=== PATIENT | female | born 1985 | race Caucasian/White ===

== ENCOUNTER → 2016-11-03 | Outpatient (REF) | payer OTHER ==
[~2016-11-03] MED LIST: ACET50TA PO; DOCU10CA PO; IBUP80TA PO; NEXI20CA PO; VITAPRTA PO
== END ==
LOC: M LAB REF 12:38
PROVIDERS: ATTEND Obstetrics & Gynecology
DX: R87.610 Atypical squamous cells of undetermined significance on cytologic smear of cervix (ASC-US) (principal); R87.810 Cervical high risk human papillomavirus (HPV) DNA test positive

== ENCOUNTER → 2019-08-14 | Outpatient (CLI) | payer BC ==
[~2019-08-14] MED LIST changes: -ACET50TA PO; +MAPA500T2 PO
--- NOTE | 2019-08-15 04:11 | REP ---
Clinical: Right heel pain. Technique: AP, lateral, bilateral oblique views of the right ankle. Findings: Lateral view demonstrates moderate calcaneal heal spur. No obvious plantar calcifications noted. Remainder examination appears normal for age. No acute fracture dislocation. Impression: Moderate calcaneal heal spur. Electronically Signed by Tomás Pearson MD 08/15/2019 04:03 A
--- NOTE | 2019-08-15 04:26 | REP ---
Clinical: Heel pain. Technique: AP, lateral, bilateral oblique views of the right foot. Findings: Lateral view demonstrates moderate calcaneal heal spur. The associated soft tissues are relatively normal and without calcifications. Osseous structures and joint spaces and surrounding soft tissues are otherwise normal. Impression: Moderate calcaneal heal spur. Electronically Signed by Tomás Pearson MD 08/15/2019 04:17 A
== END ==
LOC: M CLY 08:18
PROVIDERS: ATTEND Nurse Practitioner Family
DX: M79.671 Pain in right foot (principal)

== ENCOUNTER → 2019-08-27 | Outpatient (CLI) | payer BC ==
--- NOTE | 2019-08-27 10:29 | REP ---
RIGHT UPPER QUADRANT ULTRASOUND: Real-time sonographic evaluation of the right upper quadrant was performed. Gallbladder demonstrates a polyp along the inner wall measuring 6 x 6 x 7 mm, non-mobile and not causing distal acoustic shadowing. No gallstones are seen. There is no gallbladder wall thickening or pericholecystic fluid. There is no intrahepatic or extrahepatic biliary dilatation. Common bile duct measuring 4 mm. The liver demonstrates mild increased echotexture diffusely suggesting fatty infiltration. No gross liver or pancreatic mass is seen, the pancreas not optimally seen due to overlying bowel gas. Right kidney demonstrates no hydronephrosis with normal size 14 cm in length. IMPRESSION: Gallbladder polyp 6 x 6 x 7 mm. Recommend followup ultrasound in 6 months. Diffuse fatty infiltration of the liver. Electronically Signed by Cain Melissa MD 08/28/2019 08:38 P
== END ==
LOC: M RAD 08:58
PROVIDERS: ATTEND Nurse Practitioner Family
DX: K76.0 Fatty (change of) liver, not elsewhere classified (principal)

== ENCOUNTER → 2019-09-11 | Outpatient (REF) | payer BC ==
[2019-09-11 17:18] LABS: BASO # 0.1 10^3/uL (0.0-0.2); BASO % 0.7 % (0.0-1.0); EOS # 0.1 10^3/uL (0.0-0.5); EOS % 1.2 % (0.0-3.0); HEMATOCRIT 46.6 % (36.0-47.0); HEMOGLOBIN 15.7 g/dl (12.0-15.5); LYMPH % 22.7 % (24.0-44.0); MEAN CORPUSCULAR HEMOGLOBIN 29.2 pg (27.0-33.0); MEAN CORPUSCULAR HGB CONC 33.7 g/dl (32.0-36.5); MEAN CORPUSCULAR VOLUME 86.6 fl (80.0-96.0); MONO # 0.8 10^3/uL (0.0-0.8); MONO % 8.5 % (0.0-5.0); NEUTROPHILS # 5.9 10^3/uL (1.5-8.5); NEUTROPHILS % 66.6 % (36.0-66.0); PLATELET COUNT, AUTOMATED 419 10^3/uL (150-450); RED BLOOD COUNT 5.38 10^6/uL (4.00-5.40); WHITE BLOOD COUNT 8.8 10^3/uL (4.0-10.0)
[2019-09-11 17:25] LABS: ALT/SGPT 33 U/L (12-78); BILIRUBIN,TOTAL 0.3 MG/DL (0.2-1.0); BLOOD UREA NITROGEN 13 MG/DL (7-18); CALCIUM LEVEL 9.2 MG/DL (8.5-10.1); CARBON DIOXIDE LEVEL 29 MEQ/L (21-32); CHLORIDE LEVEL 106 MEQ/L (98-107); CHOLESTEROL LEVEL 163 MG/DL (<200); CHOLESTEROL RISK RATIO 3.196 (<5); FREE T4 1.06 NG/DL (0.76-1.46); GLOMERULAR FILTRATION RATE > 60.0 (>60); GLUCOSE, FASTING 86 MG/DL (70-100); HDL CHOLESTEROL 51 MG/DL (>40); LDL CHOLESTEROL 90 MG/DL (<100); NON-HDL-C 112 MG/DL; POTASSIUM SERUM 4.3 MEQ/L (3.5-5.1); SODIUM LEVEL 139 MEQ/L (136-145); THYROID STIMULATING HORMONE 0.796 uIU/ML (0.358-3.740); TOTAL PROTEIN 7.7 GM/DL (6.4-8.2); TRIGLYCERIDES LEVEL 109 MG/DL (<150)
== END ==
LOC: M SFHCCLAY 09:35
PROVIDERS: ATTEND Nurse Practitioner Family
DX: E66.9 Obesity, unspecified (principal); M25.571 Pain in right ankle and joints of right foot; M79.671 Pain in right foot

== ENCOUNTER → 2020-03-07 | Outpatient (CLI) | payer BC ==
--- NOTE | 2020-03-07 10:41 | REP ---
REASON: Followup gallbladder polyp. COMPARISON: 08/27/2019 which showed a 7 mm sized echogenic focus adherent to gallbladder wall likely a gallbladder polyp. Additionally, fatty infiltration of the liver was identified. Today's examination shows a diffuse increase in the hepatic echoes much in the same fashion as the prior exam. The echogenic focus seen previously adherent to the gallbladder wall is unchanged in size and again having a maximal dimension of 7 mm. There is no pericholecystic edema or cholelithiasis. The imaged portion of the pancreas and right kidney are again seen to be within normal limits. IMPRESSION: 1. No significant change when compared to the prior exam. Stable echogenic focus adherent to the gallbladder wall likely a gallbladder polyp. 2. Fatty infiltration of the liver status quo.
== END ==
LOC: M WHC 08:28
PROVIDERS: ATTEND Nurse Practitioner Family
DX: K82.4 Cholesterolosis of gallbladder (principal); K76.0 Fatty (change of) liver, not elsewhere classified

== ENCOUNTER → 2022-09-14 | Outpatient (CLI) | payer BC | LOC: M SOG 07:51 | PROVIDERS: ATTEND Physician Assistant | DX: M77.11 Lateral epicondylitis, right elbow (principal) ==

== ENCOUNTER → 2022-10-20 | Outpatient (REF) | payer BC ==
[2022-10-20 17:14] LABS: BASO # 0.1 10^3/uL (0.0-0.2); EOS # 0.2 10^3/uL (0.0-0.5); EOS % 2.4 % (0.0-3.0); HEMATOCRIT 44.6 % (36.0-47.0); HEMOGLOBIN 14.9 g/dl (12.0-15.5); LYMPH # 1.6 10^3/uL (1.5-5.0); LYMPH % 21.8 % (24.0-44.0); MEAN CORPUSCULAR HEMOGLOBIN 29.3 pg (27.0-33.0); MEAN CORPUSCULAR HGB CONC 33.4 g/dl (32.0-36.5); MEAN CORPUSCULAR VOLUME 87.6 fl (80.0-96.0); MONO # 0.9 10^3/uL (0.0-0.8); MONO % 12.4 % (2.0-8.0); NEUTROPHILS # 4.4 10^3/uL (1.5-8.5); NEUTROPHILS % 62.1 % (36.0-66.0); PLATELET COUNT, AUTOMATED 345 10^3/uL (150-450); RED BLOOD COUNT 5.09 10^6/uL (4.00-5.40); WHITE BLOOD COUNT 7.1 10^3/uL (4.0-10.0)
[2022-10-20 17:16] LABS: ALBUMIN 3.7 G/DL (3.2-5.2); ALKALINE PHOSPHATASE 60 U/L (46-116); ALT/SGPT 26 U/L (7.0-40); AST/SGOT 17 U/L (<34); BILIRUBIN,TOTAL 0.6 MG/DL (0.3-1.2); BLOOD UREA NITROGEN 13 MG/DL (9-23); CARBON DIOXIDE LEVEL 28 MMOL/L (20-31); CHLORIDE LEVEL 106 MMOL/L (98-107); CHOLESTEROL LEVEL 159 MG/DL (<200); CHOLESTEROL RISK RATIO 3.55 (<5); CREATININE FOR GFR 0.76 MG/DL (0.55-1.30); GLOMERULAR FILTRATION RATE > 60.0 (>60); GLUCOSE, FASTING 132 MG/DL (60-100); HDL CHOLESTEROL 44.7 MG/DL (>40); LDL CHOLESTEROL 97.3 MG/DL (<100); NON-HDL-C 114 MG/DL; POTASSIUM SERUM 4.7 MMOL/L (3.5-5.1); SODIUM LEVEL 140 MMOL/L (136-145); TOTAL PROTEIN 6.6 G/DL (5.7-8.2); TRIGLYCERIDES LEVEL 85 MG/DL (<150)
[2022-10-20 17:20] LABS: FREE T4 1.08 NG/DL (0.89-1.76)
== END ==
LOC: M SFHCCLAY 09:35
PROVIDERS: ATTEND Nurse Practitioner Family
DX: E66.9 Obesity, unspecified (principal); K76.0 Fatty (change of) liver, not elsewhere classified; Z97.5 Presence of (intrauterine) contraceptive device

== ENCOUNTER → 2022-12-30 | Outpatient (CLI) | payer BC | LOC: M RAD 14:44 | PROVIDERS: ATTEND Physician Assistant | DX: T83.32XA Displacement of intrauterine contraceptive device, initial encounter (principal) ==

== ENCOUNTER 2023-07-22 08:21 | Day surgery (SDC) | payer BC ==
[~2023-07-22] VITALS: Ht 162.6 cm; Wt 103.8 kg
[~2023-07-22 08:21] MED LIST changes: +BUPR-69; +NALT50TA4
[2023-07-22] MEDS ORDERED: ONDANSETRON 4MG 2ML VIAL As Ordered ONE (08:49)
[2023-07-22] MEDS ORDERED: LIDOCAINE 2% 100MG/5ML SDV (FOR ANES.) As Ordered ONE (08:49)
[2023-07-22] MEDS ORDERED: propofoL 200 MG/20 ML VIAL As Ordered ONE ×2 (08:49→09:54)
[2023-07-22] MEDS ORDERED: KETOROLAC 60MG 2ML VIAL As Ordered ONE (08:50)
[2023-07-22 08:54] LABS: HEMATOCRIT 47.3 % (36.0-47.0); HEMOGLOBIN 16.1 g/dl (12.0-15.5); MEAN CORPUSCULAR HEMOGLOBIN 29.2 pg (27.0-33.0); MEAN CORPUSCULAR VOLUME 85.8 fl (80.0-96.0); PLATELET COUNT, AUTOMATED 381 10^3/uL (150-450); RED BLOOD COUNT 5.51 10^6/uL (4.00-5.40); WHITE BLOOD COUNT 8.8 10^3/uL (4.0-10.0)
[2023-07-22] MEDS ORDERED: MIDAZOLAM INJ 2MG/2ML VIAL As Ordered ONE (08:54)
[2023-07-22] MEDS ORDERED: fentaNYL 100 MCG/2 ML INJECTION As Ordered ONE (08:54)
[2023-07-22] MEDS ORDERED: LR 1,000 ML IV SCH ×2 (08:55→10:25)
[2023-07-22] MEDS ORDERED: ACETAMINOPHEN 1000MG 100ML IV BAG As Ordered ONE ×2 (09:40→11:10)
[2023-07-22] MEDS ORDERED: fentaNYL 100 MCG/2 ML INJECTION IV PRN (10:25)
[2023-07-22] MEDS ORDERED: oxyCODONE 5MG TAB PO PRN (10:25)
[2023-07-22] MEDS ORDERED: ONDANSETRON 4MG 2ML VIAL IV PRN (10:25)
[2023-07-22 11:20] VITALS: BP 132/79; TEMP 97.7; O2SAT 97
== END 2023-07-22 11:25 | disposition home or self-care (01) ==
LOC: M SDC 08:21
PROVIDERS: ATTEND Specialist
DX: T83.32XA Displacement of intrauterine contraceptive device, initial encounter (principal); Y76.2 Prosthetic and other implants, materials and accessory obstetric and gynecological devices associated with adverse incidents; F41.9 Anxiety disorder, unspecified; Z79.899 Other long term (current) drug therapy; Z79.891 Long term (current) use of opiate analgesic; Z87.891 Personal history of nicotine dependence; Y92.9 Unspecified place or not applicable
CPT/HCPCS: 36415; 58562; 81025; 85027; 88305; J0131; J1100; J1885; J2250; J2405; J3010

== ENCOUNTER → 2024-05-23 | Outpatient (CLI) | payer BC ==
[~2024-05-23] MED LIST changes: +GASTROGRAFIN SOLUTION 30ML ONE; +ISOVUE-370 76% 100ML VIAL ONE
== END ==
LOC: M PLAIMG 08:51
PROVIDERS: ATTEND Nurse Practitioner Family
DX: K59.09 Other constipation (principal)
CPT/HCPCS: 74177; Q9963; Q9967